=== PATIENT | female | born 1990 ===

== ENCOUNTER 2023-06-10 08:57 | Observation (INO) | payer MEDICAID ==
[2023-06-10] MEDS ORDERED: PREN-96 PO (09:50)
[2023-06-10] MEDS ORDERED: FER325T PO (09:51)
== END 2023-06-10 10:35 | disposition home or self-care (01) ==
LOC: UNDOADMOB 08:57 → LDRP 08:57 → UNDODISOB 10:35
PROVIDERS: ADMIT Obstetrics & Gynecology; ATTEND Obstetrics & Gynecology
DX: O24.419 Gestational diabetes mellitus in pregnancy, unspecified control (principal); Z3A.37 37 weeks gestation of pregnancy
CPT/HCPCS: 59025; 76818; 81002; 82948; 82962; G0378

== ENCOUNTER 2023-06-16 10:03 | Observation (INO) | payer MEDICAID ==
[~2023-06-16 10:03] MED LIST: FER325T PO; PREN-96 PO
== END 2023-06-16 11:30 | disposition home or self-care (01) ==
LOC: UNDOADMOB 10:03 → LDRP 10:03 → UNDODISOB 11:30
PROVIDERS: ADMIT Obstetrics & Gynecology; ATTEND Obstetrics & Gynecology
DX: O24.419 Gestational diabetes mellitus in pregnancy, unspecified control (principal); Z3A.38 38 weeks gestation of pregnancy
CPT/HCPCS: 59025; 76818; 81002; 82948; 82962; 94760; G0378

== ENCOUNTER 2023-06-23 10:32 | Observation (INO) | payer MEDICAID | END 2023-06-23 12:15 | disposition home or self-care (01) | LOC: UNDOADMOB 10:32 → LDRP 10:32 → UNDODISOB 12:15 | PROVIDERS: ADMIT Obstetrics & Gynecology; ATTEND Obstetrics & Gynecology | DX: O24.410 Gestational diabetes mellitus in pregnancy, diet controlled (principal); O62.9 Abnormality of forces of labor, unspecified; O26.893 Other specified pregnancy related conditions, third trimester; R10.9 Unspecified abdominal pain; Z3A.39 39 weeks gestation of pregnancy | CPT/HCPCS: 59025; 76818; 81002; 82962; 94760; G0378 ==

== ENCOUNTER 2023-06-28 16:00 | Inpatient (IN) | payer MEDICAID ==
[~2023-06-28] VITALS: Ht 152.4 cm; Wt 71.2 kg
[~2023-06-28 16:00] MED LIST changes: +fentaNYL CITRATE 100 MCG/2 ML VL IV ONE
[2023-06-28] MEDS ORDERED: PROMETHAZINE HCL 25 MG/ML 1ML IV PRN (16:15)
[2023-06-28] MEDS ORDERED: BUTORPHANOL TARTRATE 2 MG/1 ML VIAL IV PRN ×2 (16:15)
[2023-06-28] MEDS ORDERED: LIDOCAINE 2%HCL (LOCAL ANESTH.) INJ 20ML MDV IJ PRN (16:15)
[2023-06-28] MEDS ORDERED: LACT. RINGERS/OXYTOCIN 20UNITS 500 ML IV ONE ×2 (16:15→16:45)
[2023-06-28 16:56] LABS: Basophils # (auto) 0 10 ^3/uL (0-0.2); Basophils % (auto) 0.1 % (0.0-2.0); Eosinophils # (auto) 0 10 ^3/uL (0-0.8); Eosinophils % (auto) 0.6 % (0.0-7.0); Hematocrit 32.5 % (36.0-46.0); Hemoglobin 10.8 g/dL (12.2-16.2); Lymphocytes # (auto) 1.4 10 ^3/uL (0.4-5.4); Lymphocytes % (auto) 17.9 % (10.0-50.0); Mean Corpuscular Hemoglobin 29.7 pg (28.0-32.0); Mean Corpuscular Hgb Conc. 33.2 g/dL (32.0-36.0); Mean Corpuscular Volume 89.4 fL (80.0-100.0); Monocytes # (auto) 0.4 10 ^3/uL (0-1.3); Monocytes % (auto) 5.8 % (0.0-12.0); Neutrophils # (auto) 5.8 10 ^3/uL (1.6-8.6); Neutrophils % (auto) 75.6 % (37.0-80.0); Nucleated Red Blood Cells % 0.1 %; Red Blood Cells 3.63 10^6/uL (4.0-5.20); Red Cell Distribution Width 13.8 % (11.8-14.3); White Blood Cell 7.7 10^3/uL (4.4-10.8)
[2023-06-28 17:03] LABS: Urine Bacteria FEW /hpf (None Seen); Urine Blood Negative /uL (Negative); Urine Clarity HAZY (Clear); Urine Color Colorless (Yellow); Urine Mucus FEW (None Seen); Urine Protein, UAD Negative (Negative); Urine Specific Gravity 1.016 (1.001-1.035); Urine Urobilinogen Normal (Negative); Urine WBC 1 /hpf (0 - 5)
[2023-06-28 17:13] LABS: Albumin 3.7 g/dL (3.2-4.8); Alkaline Phosphatase 108 U/L (46-116); Anion Gap 7 (5-15); Aspartate Aminotransferase 17 U/L (13-40); BUN/Creatinine Ratio 9.3 (10.0-20.0); Blood Urea Nitrogen 8 mg/dL (9-23); Carbon Dioxide 21 mmol/L (20-30); Chloride 109 mmol/L (98-107); Glucose 73 mg/dL (74-106); Sodium 137 mmol/L (136-145)
[2023-06-28 17:13] LABS: Amphetamine Screen, Urine Neg (NEGATIVE); Barbiturate Scree,Urine Neg (NEGATIVE); Benzodiazephine Screen, Urine Neg (NEGATIVE); Cocaine Screen, Urine Neg (NEGATIVE); Opiate Scree,Urine Neg (NEGATIVE)
[2023-06-28 17:14] LABS: Bilirubin, Total 0.4 mg/dL (0.2-1.0); INR 0.93 (0.9-1.15); Partial Thromboplastin Time 30.4 SEC (24.5-34.5); Prothrombin Time 9.8 sec (9.3-11.8); Total Protein 6.4 g/dL (5.7-8.2)
[2023-06-28 17:14] LABS: Cannabinoid Screen, Urine Neg (NEGATIVE); Phencyclidine Screen, Urine Neg (NEGATIVE)
[2023-06-28 17:17] LABS: Alanine Aminotransferase 9 U/L (7-40)
[2023-06-28] MEDS: LACTATED RINGER'S 1,000 ML IV SCH (17:25)
[2023-06-28] MEDS: DERMOPLAST 60ML BOTTLE TOP PRN (19:19)
[2023-06-28] MEDS: miSOPROStol 50 MCG per PRE-CUT 1/2 TAB PO PRN (19:20)
[2023-06-28] MEDS: PHISODERM TOP SOLN 240ML BTL TOP PRN (19:20)
[2023-06-28] MEDS: WITCH HAZEL-GLYCERIN PAD TOP PRN (19:20)
[2023-06-28] MEDS ORDERED: NALOXONE HCL 1MG/ML 2ML SYRINGE IV ONE (20:45)
[2023-06-28] MEDS ORDERED: fentaNYL CITRATE 100 MCG/2 ML VL IV ONE (20:45)
[2023-06-28] MEDS: D5W/LACTATED RINGERS 1,000 ML IV SCH (21:13)
[2023-06-28] MEDS: CLINDAMYCIN 900MG IV 50 ML IV SCH (22:00)
[2023-06-28] MEDS ORDERED: CLINDAMYCIN 600MG IV 50 ML IV SCH (22:00)
[2023-06-29] MEDS: miSOPROStol 50 MCG per PRE-CUT 1/2 TAB PO PRN (01:16)
[2023-06-29] MEDS: LACTATED RINGER'S 1,000 ML IV SCH ×3 (04:01→16:15)
[2023-06-29] MEDS ORDERED: ROPIVACAINE HCL 200 ML EPI SCH (04:15)
[2023-06-29] MEDS ORDERED: ePHEDrine SULFATE 50 MG/ML AMP IV ONE (04:15)
[2023-06-29] MEDS ORDERED: fentaNYL CITRATE 100 MCG/2 ML VL IV ONE (04:15)
[2023-06-29] MEDS ORDERED: NALOXONE HCL 0.4 MG/ML VIAL IV ONE (04:15)
[2023-06-29] MEDS ORDERED: LACTATED RINGER'S 1,000 ML IV ONE (04:15)
[2023-06-29] MEDS ORDERED: LIDOCAINE HCL 2 %PF INJ 10ML AMP IJ ONE (04:15)
[2023-06-29] MEDS ORDERED: ROPIVACAINE HCL 100 ML ONE (04:31)
[2023-06-29] MEDS: D5W/LACTATED RINGERS 1,000 ML IV SCH (04:45)
[2023-06-29] MEDS: CLINDAMYCIN 900MG IV 50 ML IV SCH (06:00)
[2023-06-29] MEDS ORDERED: METHYLERGONOVINE MALEATE 0.2 MG/ML AMP IM ONE ×2 (06:10→06:45)
[2023-06-29] MEDS: DERMOPLAST 60ML BOTTLE TOP PRN (06:33)
[2023-06-29] MEDS: PHISODERM TOP SOLN 240ML BTL TOP PRN (06:33)
[2023-06-29] MEDS: WITCH HAZEL-GLYCERIN PAD TOP PRN (06:33)
[2023-06-29] MEDS ORDERED: ONDANSETRON ODT 4 MG TAB PO PRN (06:45)
[2023-06-29] MEDS ORDERED: ACETAMINOPHEN 325 MG TAB PO PRN (06:45)
[2023-06-29] MEDS: IBUPROFEN 600 MG TAB PO PRN ×3 (07:37→21:53)
[2023-06-29] MEDS: DOCUSATE CALCIUM 240 MG CAP PO SCH (09:40)
[2023-06-29 11:11] VITALS: BP 99/70; PULSE 73; RESP 17; TEMP 97.7; O2SAT 97
[2023-06-29 15:20] VITALS: BP 96/55; PULSE 69; RESP 16; TEMP 98.7; O2SAT 97
[2023-06-29] MEDS ORDERED: HYDROcodone-ACET 5/325MG TAB PO PRN (17:00)
[2023-06-29] MEDS: HYDROcodone-ACET 5/325MG TAB PO PRN ×2 (17:15→23:48)
[2023-06-29 18:32] LABS: Basophils # (auto) 0 10 ^3/uL (0-0.2); Basophils % (auto) 0.1 % (0.0-2.0); Eosinophils # (auto) 0 10 ^3/uL (0-0.8); Eosinophils % (auto) 0.2 % (0.0-7.0); Hematocrit 31.2 % (36.0-46.0); Hemoglobin 10.1 g/dL (12.2-16.2); Lymphocytes # (auto) 1.5 10 ^3/uL (0.4-5.4); Lymphocytes % (auto) 12.5 % (10.0-50.0); Mean Corpuscular Hemoglobin 29.4 pg (28.0-32.0); Mean Corpuscular Hgb Conc. 32.5 g/dL (32.0-36.0); Mean Corpuscular Volume 90.4 fL (80.0-100.0); Monocytes # (auto) 0.8 10 ^3/uL (0-1.3); Monocytes % (auto) 6.7 % (0.0-12.0); Neutrophils # (auto) 9.7 10 ^3/uL (1.6-8.6); Neutrophils % (auto) 80.5 % (37.0-80.0); Red Blood Cells 3.45 10^6/uL (4.0-5.20); White Blood Cell 12.1 10^3/uL (4.4-10.8)
[2023-06-29 19:10] VITALS: BP 99/57; PULSE 63; RESP 16; TEMP 97.8; O2SAT 99
[2023-06-29] MEDS: CLINDAMYCIN 600MG IV 50 ML IV SCH (21:54)
[2023-06-29] MEDS ORDERED: DOCUSATE SOD 100 MG CAP PO SCH (22:00)
[2023-06-29 23:20] VITALS: BP 112/59; PULSE 68; RESP 17; TEMP 98.9; O2SAT 97
[2023-06-30 02:35] VITALS: BP 110/57; PULSE 63; RESP 16; TEMP 97.9
[2023-06-30] MEDS: IBUPROFEN 600 MG TAB PO PRN (03:55)
[2023-06-30] MEDS: HYDROcodone-ACET 5/325MG TAB PO PRN (05:02)
[2023-06-30 05:22] LABS: Basophils # (auto) 0 10 ^3/uL (0-0.2); Basophils % (auto) 0.1 % (0.0-2.0); Eosinophils # (auto) 0.1 10 ^3/uL (0-0.8); Eosinophils % (auto) 1.2 % (0.0-7.0); Hematocrit 28.5 % (36.0-46.0); Hemoglobin 9.4 g/dL (12.2-16.2); Lymphocytes # (auto) 2.4 10 ^3/uL (0.4-5.4); Lymphocytes % (auto) 24.2 % (10.0-50.0); Mean Corpuscular Hemoglobin 29.8 pg (28.0-32.0); Mean Corpuscular Volume 90.2 fL (80.0-100.0); Monocytes # (auto) 0.5 10 ^3/uL (0-1.3); Monocytes % (auto) 5.3 % (0.0-12.0); Neutrophils # (auto) 6.8 10 ^3/uL (1.6-8.6); Neutrophils % (auto) 69.2 % (37.0-80.0); Red Blood Cells 3.16 10^6/uL (4.0-5.20); White Blood Cell 9.9 10^3/uL (4.4-10.8)
[2023-06-30] MEDS: CLINDAMYCIN 600MG IV 50 ML IV SCH (05:32)
[2023-06-30 05:48] LABS: INR 0.93 (0.9-1.15)
[2023-06-30 07:00] VITALS: BP 105/60; PULSE 59; RESP 17; TEMP 97.4; O2SAT 100
[2023-06-30] MEDS ORDERED: DOCU-265 PO (07:14)
[2023-06-30] MEDS ORDERED: IBU600T PO (07:14)
[2023-06-30] MEDS ORDERED: HYDR-4902 PO (07:14)
[2023-06-30] MEDS: DOCUSATE CALCIUM 240 MG CAP PO SCH (09:59)
[2023-07-01 07:07] LABS: RPR Non Reactive (Non Reactive)
[2023-07-02 19:06] LABS: Treponema pallidum Ab (FTA-Ab) Non Reactive (Non Reactive)
== END 2023-06-30 11:13 | disposition home or self-care (01) | DRG 560 ==
LOC: LDRP 16:00 → UNDOADMIN 16:00 → LDRP 16:08
PROVIDERS: ADMIT Obstetrics & Gynecology; ATTEND Obstetrics & Gynecology
PROC: 10D07Z6 Extraction of Products of Conception, Vacuum, Via Natural or Artificial Opening (ICD-10-PCS; principal; 2023-06-29)
PROC: 0KQM0ZZ Repair Perineum Muscle, Open Approach (ICD-10-PCS; 2023-06-29)
PROC: 3E0R3BZ Introduction of Anesthetic Agent into Spinal Canal, Percutaneous Approach (ICD-10-PCS; 2023-06-29)
PROC: 00HU33Z Insertion of Infusion Device into Spinal Canal, Percutaneous Approach (ICD-10-PCS; 2023-06-29)
DX: O48.0 Post-term pregnancy (principal); Z37.0 Single live birth; O24.429 Gestational diabetes mellitus in childbirth, unspecified control; O70.1 Second degree perineal laceration during delivery; Z3A.40 40 weeks gestation of pregnancy; Z88.0 Allergy status to penicillin
CPT/HCPCS: 36415; 59025; 59409; 62282; 80053; 80307; 81001; 81002; 82948; 82962; 85025; 85610; 85730; 86592; 86850; 86900; 86901; 94760; 94762; 96360; 96361; 96365; 96366; 96372; 96374; 96375; G0378; J2590; J3490

== ENCOUNTER → 2025-03-15 | Outpatient (CLI) | payer MEDICAID ==
[~2025-03-15] MED LIST changes: +DOCU-265 PO; +HYDR-4902 PO; +IBU600T PO; +NAP500T PO; -fentaNYL CITRATE 100 MCG/2 ML VL IV ONE
[2025-03-15 14:29] LABS: Hematocrit 34.1 % (36.0-46.0); Hemoglobin 11.5 g/dL (12.2-16.2); Mean Corpuscular Hemoglobin 29.6 pg (28.0-32.0); Mean Corpuscular Volume 87.8 fL (80.0-100.0); Nucleated Red Blood Cells % 0.0 %
[2025-03-15 14:31] LABS: Urine Protein, UAD Negative (Negative)
== END | disposition home or self-care (01) ==
LOC: LAB 13:49
PROVIDERS: ATTEND Nurse Practitioner Women's Health
DX: Z34.80 Encounter for supervision of other normal pregnancy, unspecified trimester (principal); Z3A.00 Weeks of gestation of pregnancy not specified
CPT/HCPCS: 36415; 81001; 85025; 86780; 86850; 86900; 86901; 87086

== ENCOUNTER 2025-04-25 08:46 | Outpatient (CLI) | payer MEDICAID ==
[2025-04-25 09:14] LABS: Hematocrit 32.7 % (36.0-46.0); Hemoglobin 11.3 g/dL (12.2-16.2); Mean Corpuscular Hemoglobin 30.3 pg (28.0-32.0); Mean Corpuscular Volume 88.2 fL (80.0-100.0); Nucleated Red Blood Cells % 0.0 %
[2025-04-27 00:07] LABS: Chlamydia Trachomatis, NAA Negative (Negative); Neisseria gonorrhoeae, NAA Negative (Negative)
== END 2025-04-25 17:00 | disposition home or self-care (01) ==
LOC: LAB 08:46
DX: Z34.80 Encounter for supervision of other normal pregnancy, unspecified trimester (principal); Z72.53 High risk bisexual behavior; Z3A.00 Weeks of gestation of pregnancy not specified
CPT/HCPCS: 36415; 85025; 86780

== ENCOUNTER 2025-05-21 09:06 | Observation (INO) | payer SELFPAY ==
--- NOTE | 2025-05-21 11:08 | DVH ---
CLINICAL HISTORY: Term . COMPARISON: US BIOPHYSICAL PROFILE on DOS: 06/23/23, US BIOPHYSICAL PROFILE on DOS: 06/16/23, US BIOPH YSICAL PROFILE on DOS: 06/10/23 TECHNIQUE: biophysical profile was performed. Transabdominal sonographic images of the fetus we re obtained. FINDINGS: The fetus is in cephalic position. heart rate measures 144 BPM. Amniotic fluid index measures 7.5 cm. The placenta is posterior/fundal in position without evidence of previa or abruption . BPP profile is an overall score of 8/8, with 2/2 points for breathing, with at least one episode of breathing over a 30 second duration during a 30 minute observation, 2/2 points for m ovements, with 3 or more discrete body or limb movements, 2/2 points for tone, with one or more episodes of extremity extension with return to flexion, or opening and closing of hand, and 2/ 2 points for amniotic fluid, with at least 1 pocket of amniotic fluid that measures 2 cm in 2 perpend icular planes. IMPRESSION: BPP score of 8/8.
--- NOTE | 2025-05-22 09:51 | DVHDS2 ---
Physician Discharge Progress N Final Diagnosis: 40WKS TERM LABOR CHECK Operations or Procedures: Operations or Procedures NST REACTIVE YO TALAMANTES Condition on Discharge: Good Disposition: Home Discharge Instructions: Diet: Regular Activity: Light activity Medications: NA Follow Up Care: Specialist: 2D Discharge Statement: "Patient was advised to return to the ER or call 911 if any headaches, dizziness, shortness of breath, chest pain, abdominal pain, bleeding, fevers, or worsening of medical condition. Patient was counseled about treatment plan, medications, possible side effects, patientverbalized understanding. All questions were answered to the best of my ability. This discharge took greater then 30 minutes in planning, reviewing documentat ion, counseling the patient, and discussing with other team members." Visit Coding OBGYN Date of Service: May 20, 2025 Billing Provider: ROLAND SOUZA DO WAREHOUSE AND RECEIVING SUPERVISOR Common Visit Codes: [id number] OBS CARE (HIGH) WAREHOUSE AND RECEIVING SUPERVISOR Procedure Codes: 83323-60- NON-STRESS TEST ROLAND SOUZA DO May 22, 2025 09:51
== END 2025-05-21 11:49 | disposition home or self-care (01) ==
LOC: LDRP 09:06
PROVIDERS: ADMIT Obstetrics & Gynecology; ATTEND Obstetrics & Gynecology
DX: O48.0 Post-term pregnancy (principal); Z3A.40 40 weeks gestation of pregnancy; Z98.890 Other specified postprocedural states
CPT/HCPCS: 76818; 81002; 94760; G0378; 76819

== ENCOUNTER 2025-05-23 06:59 | Observation (INO) | payer MEDICAID ==
--- NOTE | 2025-05-23 09:56 | DVH ---
BIOPHYSICAL PROFILE HISTORY: TERM TECHNIQUE: Multiple transabdominal real-time grayscale sonographic images through the gravid uterus of the fetus with duplex Doppler color flow and M-mode spectral analysis FINDINGS: BIOPHYSICAL PROFILE: breathing score: 2 movement score: 2 tone score: 2 Quantitative INO score: 2 (INO: 8.9 Cm.) Total score: 8 The cervix not well visualized. Single live fetus in cephalic presentation. heart rate 157 beats per minute. Fundal/posterior placenta without previa or abruption IMPRESSION: Biophysical profile score: 8
--- NOTE | 2025-05-24 08:00 | DVHDS2 ---
Physician Discharge Progress N Final Diagnosis: iup at 40wks Operations or Procedures: Operations or Procedures nst reactive reviwed,sono Condition on Discharge: Good Disposition: Home Discharge Instructions: Diet: Regular Activity: Light activity Medications: na Follow Up Care: Specialist: fu 1 day for induction ,pt refused ind today Discharge Statement: "Patient was advised to return to the ER or call 911 if any headaches, dizziness, shortness of breath, chest pain, abdominal pain, bleeding, fevers, or worsening of medical condition. Patient was counseled about treatment plan, medications, possible side effects, patientverbalized understanding. All questions were answered to the best of my ability. This discharge took greater then 30 minutes in planning, reviewing documentation, counseling the patient, and discussing with other team members." Visit Coding OBGYN Date of Service: May 23, 2025 Billing Provider: ROLAND SOUZA DO LUMBER MOVER Common Visit Codes: [id number] INP/OBS CARE (HIGH) LUMBER MOVER Procedure Codes: 72307-62- NON-STRESS TEST ROLAND SOUZA DO May 24, 2025 08:00
== END 2025-05-23 11:00 | disposition home or self-care (01) ==
LOC: LDRP 09:11 → UNDOADMOB 09:11 → LDRP 09:13 → UNDODISOB 11:00
PROVIDERS: ADMIT Obstetrics & Gynecology; ATTEND Obstetrics & Gynecology
DX: Z36.89 Encounter for other specified antenatal screening (principal); Z3A.40 40 weeks gestation of pregnancy; Z98.890 Other specified postprocedural states
CPT/HCPCS: 59025; 76819; 81002; 94760; G0378

== ENCOUNTER 2025-05-24 06:13 | Inpatient (IN) | payer MEDICAID ==
[~2025-05-24] VITALS: Ht 152.4 cm; Wt 69.4 kg
[2025-05-24] MEDS ORDERED: LIDOCAINE 2%HCL (LOCAL ANESTH.) INJ 20ML MDV IJ PRN (09:30)
[2025-05-24] MEDS ORDERED: BUTORPHANOL TARTRATE 2 MG/1 ML VIAL IV PRN ×2 (09:30)
[2025-05-24 09:56] LABS: Hematocrit 34.2 % (36.0-46.0); Hemoglobin 11.4 g/dL (12.2-16.2); Mean Corpuscular Hemoglobin 29.9 pg (28.0-32.0); Mean Corpuscular Volume 89.2 fL (80.0-100.0); Nucleated Red Blood Cells % 0.0 %
[2025-05-24 10:08] LABS: Albumin 3.8 g/dL (3.2-4.8); Alkaline Phosphatase 101 U/L (46-116); Anion Gap 10 (5-15); BUN/Creatinine Ratio 11.1 (10.0-20.0); Bilirubin, Total 0.3 mg/dL (0.2-1.0); Calcium 9.2 mg/dL (8.7-10.4); Carbon Dioxide 23 mmol/L (20-31); Chloride 107 mmol/L (98-107); Potassium 3.7 mmol/L (3.5-5.1); Sodium 140 mmol/L (136-145); Total Protein 6.7 g/dL (5.7-8.2)
[2025-05-24 10:11] LABS: Alanine Aminotransferase < 9 U/L (7-40); Blood Urea Nitrogen 7 mg/dL (9-23); Glucose 108 mg/dL (74-106)
[2025-05-24 10:16] LABS: Urine Protein, UAD Negative (Negative)
[2025-05-24 10:21] LABS: INR 0.92 (0.9-1.15); Partial Thromboplastin Time 29.3 SEC (24.5-34.5); Prothrombin Time 9.8 sec (9.3-11.8)
[2025-05-24 10:26] LABS: Amphetamine Screen, Urine Neg (NEGATIVE); Barbiturate Scree,Urine Neg (NEGATIVE); Benzodiazephine Screen, Urine Neg (NEGATIVE); Cannabinoid Screen, Urine Neg (NEGATIVE); Cocaine Screen, Urine Neg (NEGATIVE); Opiate Scree,Urine Neg (NEGATIVE); Phencyclidine Screen, Urine Neg (NEGATIVE)
[2025-05-24] MEDS: LACTATED RINGER'S 1,000 ML IV SCH (14:27)
--- NOTE | 2025-05-24 14:27 | DVHHP2 ---
OB CC & HPI Date Date of Admission: May 24, 2025 Patient Identification: : 4 Para: 3 EDC: May 21, 2025 EGA: 40.3 Chief Complaints: Reason for admission: induction of labor Indication for induction: post dates History of Present Complaints 35yo IUP@40.3wks. Scheduled induction of labor for post dates. Denies LOF/VB/KUNZ/vision changes/RUQ pain. Endorses +FM. PNC: Routine PNC at [facility], adequate visits, PNC complicated by iron deficiency anemia. GTT wnl Dating based on LMP c/w 11wk sono, GBS negative. OB hx: x3, uncomplicated. Largest delivery weight, 8lb, 9oz Past Medical History Cardiac: No pertinent Hx Pulmonary: No pertinent Hx Central Nervous System: No pertinent Hx GI: No pertinent Hx Hemotology/Oncology: Iron deficiency anemia Hepatobiliary: No pertinent Hx Psychiatric: No pertinent Hx Musculoskeletal: No pertinent Hx Rheumotologic: No pertinent Hx Infectious Disease: No peritnent Hx ENT: No pertinent Hx Renal/: No pertinent Hx Endocrine: No pertinent Hx Dermatology: No pertinent Hx Past Surgical History: No pertinent Hx OB History OB History Care: Good Care Ultrasounds: Normal mid trimester US Obstetrical Complications: None Medical Complications: None Allergies: Coded Allergies: Penicillins (Verified Allergy, Unknown, 06/28/23) Home Meds Active Scripts Naproxen (NAPROSYN TABLET) 500 Mg Tb, 1 TAB PO BID for 7 Days, #14 TAB 1 Refill Prov:LASHONDA CALDWELL DO 07/07/23 Ibuprofen Micronized (MOTRIN TABLET) 600 Mg Tb, 600 MG PO Q6HP PRN, #30 TAB Prov:LASHONDA CALDWELL DO 06/30/23 Hydrocodone-Acetaminophen (Hydrocodone Bitartrate/AC 5-325 mg) 1 Tab Tab, 1 TAB PO Q6HPRN PRN for 5 Days, #20 TAB Prov:LASHONDA CALDWELL DO 06/30/23 Docusate Sodium (Docusate Sodium) 100 Mg Cap, 200 MG PO HS PRN, #5 CAP Prov:LASHONDA CALDWELL DO 06/30/23 Reported Medications Ferrous Sulfate (FERROUS SULFATE) 325 Mg Tb, 1 TAB PO TID, #60 TAB 3 Refills 06/10/23 Vit W/ Ferrous Fumara ( One Daily) Daily Tab, 1 TAB PO DAILY, #30 TAB 11 Refills 06/10/23 Current Medications Current Medications Medications (Trade) Dose Ordered Sig/[place] Route PRN Reason Start Time Stop Time Status Last Admin Lactated Ringer's 1,000 ml @ 125 mls/hr Q8H IV 05/24/25 09:30 Witch Ashlee (Tucks) 1 pad PRN PRN TOP PERINEAL AREA DISCOMFORT 05/24/25 09:30 Sodium Lauryl Sulfate (Phisoderm) 240 ml PRN PRN TOP PERINEAL AREA DISCOMFORT 05/24/25 09:30 Benzocaine (Dermoplast) 1 applic PRN PRN TOP PERINEAL AREA DISCOMFORT 05/24/25 09:30 Butorphanol Tartrate (Stadol Injection) 1 mg Q4HPRN PRN IV MODERATE PAIN (4-6 PAIN SCALE) 05/24/25 09:30 Butorphanol Tartrate (Stadol Injection) 2 mg Q4HPRN PRN IV SEVERE PAIN (7-10 PAIN SCALE) 05/24/25 09:30 Misoprostol (Cytotec) 50 mcg Q4HPRN PRN PO CERVICAL RIPENING 05/24/25 09:30 05/24/25 10:09 Lidocaine HCl (Xylocaine) 20 ml ONCE PRN IJ PERINEAL AREA DISCOMFORT 05/24/25 09:30 Family & Social History Family/Social History Past Family/Social History: Denies Blood Type: O+ Rubella: immune RPR/VDRL: Negative GBS Status: Negative HBsAG: Negative Review of Systems Constitutional: No symptom reported Ears, Nose, & Throat: No symptom reported Eyes: No symptom reported Pulmonary/Respiratory: No symptom reported Cardiovascular: No symptom reported Gastrointestinal: No symptom reported Genitourinary: No symptom reported Musculoskeletal: No symptom reported Skin: No symptom reported Psychiatric: No symptom reported Endocrine: No symptom reported Hemotologic/Lymphatic: No symptom reported OB Admission Exam Physical Exam Vitals: O: VSS - See CPN EFW - 7lb 13 oz 1 week ago. SVE - 09/16/-3, by SNM in clinic this AM, vertex HEENT: TMs Normal, Fontanelles Normal, Nasal Mucosa Normal, Eyes non-injected, Oropharynx Normal, PERRLA, Moist Membranes, EOMI Heart: Rhythm Normal Lungs: Clear Abdomen: Gravid Extremities: Normal Reflexes: Normal Membranes: Intact Heart Rate: 120's Accelerations: Accelerations Present Decelerations: No Decelerations Trailer Sections Assembler Variability: Average (6-25) Frequency of Contractions: irregular Intensity: Mild OB Plan Plan Admitting Diagnosis: INDUCTION OF LABOR Plan: Induction Induction Methd: Misoprostol protocol Other Plan: A: 35yo IUP@40.3wks IOL for post-dates/term Category I EFM Intact membranes GBS negative P: Admit to L&D Informed consent obtained Discussed risks, benefits, alternatives of IOL for post-dates with pt. Pt consents to IOL with cytotec. monitoring per order Pain mgmt - PRN Frequent position changes in and out of bed encouraged Limit SVE unless necessary Intrauterine resuscitation PRN Anticipate CNM will consult with Dr. Campoverde PRN Visit Coding OBGYN Date of Service: May 24, 2025 Billing Provider: LILI SMILEY CNM PHARMACIST MANAGER Common Visit Codes: [id number] INP/OBS CARE (MOD) PHARMACIST MANAGER Procedure Codes: 76795-73- NON-STRESS TEST LILI SMILEY CNM May 24, 2025 14:27
--- NOTE | 2025-05-24 19:04 | DVHPN2 ---
CNM Labor Progress Note Date and Time Seen Date Seen: May 24, 2025 Time Seen: 18:47 Subjective Patient reports: No new complaints Objective Vital Signs VSS - CPN Monitoring Method Monitoring Method: External Heart Rate Heart Rate Baseline: 150 Heart Rate Variability: Moderate Presence of FHR Accelerations: Yes Presence of FHR Decelerations: No Contractions Contractions Frequency: Other (2/10) Duration of Contraction: 100 Contractions Intensity: Moderate Contractions Resting Tone: Relaxed Membranes Membranes: Intact Vaginal Exam Vag Exam Deferred: No (4.5/50/-2) Vaginal Exam Presentation: VTX Vaginal Exam Show: Small Medications Medications - Pitocin: No Medication - Epidural: No Medication - Other S/P cytotec x2 Lab Results Lab Results Current Medications Medications (Trade) Dose Ordered Sig/[place] Start Time Stop Time Status Last Admin Dose Admin Lactated Ringer's 1,000 ml @ 125 mls/hr Q8H 05/24/25 09:30 05/24/25 17:30 125 MLS/HR Witch Ashlee (Tucks) 1 pad PRN PRN 05/24/25 09:30 Sodium Lauryl Sulfate (Phisoderm) 240 ml PRN PRN 05/24/25 09:30 Benzocaine (Dermoplast) 1 applic PRN PRN 05/24/25 09:30 Butorphanol Tartrate (Stadol Injection) 1 mg Q4HPRN PRN 05/24/25 09:30 Butorphanol Tartrate (Stadol Injection) 2 mg Q4HPRN PRN 05/24/25 09:30 Misoprostol (Cytotec) 50 mcg Q4HPRN PRN 05/24/25 09:30 05/24/25 14:21 50 MCG Lidocaine HCl (Xylocaine) 20 ml ONCE PRN 05/24/25 09:30 Ephedrine Sulfate (ePHEDrine SULFATE) 10 mg PRN ONCE 05/24/25 19:15 05/24/25 19:51 DC Lactated Ringer's 500 ml @ 500 mls/hr Q1H ONCE 05/24/25 19:15 05/24/25 20:14 DC Laboratory Tests Test 05/24/25 09:53 05/24/25 09:34 Range/Units Urine Color Light-yellow Yellow Urine Clarity Clear Clear Urine pH 7.0 5.0-9.0 Urine Specific [place] 1.011 1.001-1.035 Urine Protein Negative Negative Urine Ketones Negative Negative Urine Blood Negative Negative /uL Urine Nitrite Negative Negative Urine Bilirubin Negative Negative Urine Urobilinogen Normal Negative mg/dL Urine Leukocyte Esterase Negative Negative /uL Urine RBC 1 0 - 4 /hpf Urine Microscopic WBC 2 0-5 /HPF Urine Squamous Epithelial Cells Few <5 /hpf Urine Bacteria None seen None Seen /hpf Urine Glucose Normal Normal mg/dL Urine Opiates Screen Neg NEGATIVE Urine Fentanyl Screen Neg NEGATIVE Urine Barbiturates Screen Neg NEGATIVE Urine Phencyclidine Screen Neg NEGATIVE Urine Amphetamines Screen Neg NEGATIVE Urine Benzodiazepines Screen Neg NEGATIVE Urine Cocaine Screen Neg NEGATIVE Urine Cannabinoids Screen Neg NEGATIVE White Blood Count 8.4 4.4-10.8 10^3/uL Red Blood Count 3.83 L 4.0-5.20 10^6/uL Hemoglobin 11.4 L 12.2-16.2 g/dL Hematocrit 34.2 L 36.0-46.0 % Mean Corpuscular Volume 89.2 80.0-100.0 fL Mean Corpuscular Hemoglobin 29.9 28.0-32.0 pg Mean Corpuscular Hemoglobin Concent 33.5 32.0-36.0 g/dL Red Cell Distribution Width 14.8 H 11.8-14.3 % Platelet Count 179 140-450 10^3/uL Mean Platelet Volume 9.3 6.9-10.8 fL Neutrophils (%) (Auto) 81.5 H 37.0-80.0 % Lymphocytes (%) (Auto) 14.6 10.0-50.0 % Monocytes (%) (Auto) 3.0 0.0-12.0 % Eosinophils (%) (Auto) 0.6 0.0-7.0 % Basophils (%) (Auto) 0.3 0.0-2.0 % Neutrophils # (Auto) 6.8 1.6-8.6 10 ^3/uL Lymphocytes # (Auto) 1.2 0.4-5.4 10 ^3/uL Monocytes # (Auto) 0.3 0-1.3 10 ^3/uL Eosinophils # (Auto) 0 0-0.8 10 ^3/uL Basophils # (Auto) 0 0-0.2 10 ^3/uL Nucleated Red Blood Cells 0.0 % Prothrombin Time 9.8 9.3-11.8 sec Prothrombin Time INR 0.92 0.9-1.15 Activated Partial Thromboplast Time 29.3 24.5-34.5 SEC Sodium Level 140 136-145 mmol/L Potassium Level 3.7 3.5-5.1 mmol/L Chloride Level 107 98-107 mmol/L Carbon Dioxide Level 23 20-31 mmol/L Anion Gap 10 5-15 Blood Urea Nitrogen 7 L 9-23 mg/dL Creatinine 0.63 0.550-1.02 mg/dL Glomerular Filtration Rate Calc 120 >90 mL/min BUN/Creatinine Ratio 11.1 10.0-20.0 Serum Glucose 108 H 74-106 mg/dL Calcium Level 9.2 8.7-10.4 mg/dL Total Bilirubin 0.3 0.2-1.0 mg/dL Aspartate Amino Transferase (AST) 24 13-40 U/L Alanine Aminotransferase (ALT) < 9 7-40 U/L Alkaline Phosphatase 101 46-116 U/L Total Protein 6.7 5.7-8.2 g/dL Albumin 3.8 3.2-4.8 g/dL Treponema pallidum Antibody Non-reactive Negative Assessment Assessment 35yo IUP@40.3wks IOL for post-dates Category I EFM GBS negative Intact membrane Plan Plan P: Discussed starting Pitocin with patient. Patient agrees with POC after epidural placement. Start Pitocin titration per protocol. monitoring per order Pain mgmt - PRN Frequent position changes in and out of bed encouraged Limit SVE unless necessary Intrauterine resuscitation PRN Anticipate CNM will consult with Dr. Campoverde PRN Plan discussed with: Patient Visit Coding OBGYN Date of Service: May 24, 2025 Billing Provider: LILI SMILEY CNM SHANK SANDER Common Visit Codes: [id number] INP/OBS CARE(MOD) MORAIMA BUTLER STUDENTMDW May 24, 2025 19:04
[2025-05-24] MEDS: LACTATED RINGER'S 500 ML IV ONE (19:06)
[2025-05-24] MEDS: ROPIVACAINE HCL 0 ML ONE (19:22)
[2025-05-24] MEDS: LACT. RINGERS/OXYTOCIN 20UNITS 1,000 ML IV ONE (20:53)
[2025-05-24] MEDS: LACT. RINGERS/OXYTOCIN 20UNITS 1,000 ML IV SCH (21:00)
[2025-05-24] MEDS ORDERED: TERBUTALINE SULFATE 1 MG/ML 1ML VIAL SC PRN (21:15)
[2025-05-24] MEDS: PHISODERM TOP SOLN 240ML BTL TOP PRN (22:29)
[2025-05-24] MEDS: DERMOPLAST 60ML BOTTLE TOP PRN (22:29)
[2025-05-24] MEDS: WITCH HAZEL-GLYCERIN PAD TOP PRN (22:29)
--- NOTE | 2025-05-24 23:38 | DVHPN2 ---
CNM Labor Progress Note Date and Time Seen Date Seen: May 24, 2025 Time Seen: 22:55 Subjective Subjective Comment Patient feels comfortable with epidural in place. Reports working well. After discussion with patient, patient desires AROM. Objective Vital Signs VSS- See CPN Monitoring Method Monitoring Method: External Heart Rate Heart Rate Baseline: 125 Heart Rate Variability: Moderate Presence of FHR Accelerations: Yes Presence of FHR Decelerations: No Are all 5 Components of the FH: Yes Contractions Contractions Frequency: Other (Q2-4min) Duration of Contraction: 80 Contractions Intensity: Moderate Contractions Resting Tone: Relaxed Membranes Membranes: Ruptured (AROM) Amniotic Fluid Color: Clear Vaginal Exam Vag Exam Deferred: No Vaginal Exam Dilation: 7 Vaginal Exam Effacement: 80 Vaginal Exam Station: -2 Vaginal Exam Presentation: VTX Vaginal Exam Show: Small Medications Medications - Pitocin: Yes (4mu/min) Medication - Epidural: Yes Lab Results Lab Results Current Medications Medications (Trade) Dose Ordered Sig/[place] Start Time Stop Time Status Last Admin Dose Admin Lactated Ringer's 1,000 ml @ 125 mls/hr Q8H 05/24/25 09:30 05/25/25 00:51 DC 05/24/25 17:30 125 MLS/HR Pia Rosado (Tucks) 1 pad PRN PRN 05/24/25 09:30 05/24/25 22:29 1 PAD Sodium Lauryl Sulfate (Phisoderm) 240 ml PRN PRN 05/24/25 09:30 05/24/25 22:29 240 ML Benzocaine (Dermoplast) 1 applic PRN PRN 05/24/25 09:30 05/24/25 22:29 1 APPLIC Butorphanol Tartrate (Stadol Injection) 1 mg Q4HPRN PRN 05/24/25 09:30 05/24/25 21:55 DC Butorphanol Tartrate (Stadol Injection) 2 mg Q4HPRN PRN 05/24/25 09:30 05/24/25 21:55 DC Misoprostol (Cytotec) 50 mcg Q4HPRN PRN 05/24/25 09:30 05/25/25 00:51 DC 05/24/25 14:21 50 MCG Lidocaine HCl (Xylocaine) 20 ml ONCE PRN 05/24/25 09:30 05/25/25 00:51 DC Ephedrine Sulfate (ePHEDrine SULFATE) 10 mg PRN ONCE 05/24/25 19:15 05/24/25 19:51 DC Lactated Ringer's 500 ml @ 500 mls/hr Q1H ONCE 05/24/25 19:15 05/24/25 20:14 DC 05/24/25 19:06 500 MLS/HR Oxytocin 1,000 ml @ 6 ml/hr Q24H 05/24/25 21:15 05/25/25 00:51 DC Terbutaline Sulfate (Brethine Inj) 0.25 mg ONCE PRN 05/24/25 21:15 05/25/25 00:51 DC Ibuprofen (Motrin Tablet) 600 mg Q6HP PRN 05/25/25 01:00 Acetaminophen (Tylenol Tablet) 650 mg Q6HPRN PRN 05/25/25 01:00 UNV Prenat Multivit/ [place]/Iron/Folic Ac (Prenavite Tablet) 1 DAILY 05/25/25 10:00 UNV Docusate Sodium (Colace Capsule) 200 mg DAILY PRN 05/25/25 07:00 UNV Acetaminophen (Tylenol Tablet) 650 mg Q4HP PRN 05/25/25 01:00 UNV Ondansetron HCl (Zofran) 4 mg Q4HP PRN 05/25/25 01:00 UNV Ibuprofen (Motrin Tablet) 800 mg Q6HR 05/25/25 06:00 UNV Laboratory Tests Test 05/24/25 09:53 05/24/25 09:34 Range/Units Urine Color Light-yellow Yellow Urine Clarity Clear Clear Urine pH 7.0 5.0-9.0 Urine Specific [place] 1.011 1.001-1.035 Urine Protein Negative Negative Urine Ketones Negative Negative Urine Blood Negative Negative /uL Urine Nitrite Negative Negative Urine Bilirubin Negative Negative Urine Urobilinogen Normal Negative mg/dL Urine Leukocyte Esterase Negative Negative /uL Urine RBC 1 0 - 4 /hpf Urine Microscopic WBC 2 0-5 /HPF Urine Squamous Epithelial Cells Few <5 /hpf Urine Bacteria None seen None Seen /hpf Urine Glucose Normal Normal mg/dL Urine Opiates Screen Neg NEGATIVE Urine Fentanyl Screen Neg NEGATIVE Urine Barbiturates Screen Neg NEGATIVE Urine Phencyclidine Screen Neg NEGATIVE Urine Amphetamines Screen Neg NEGATIVE Urine Benzodiazepines Screen Neg NEGATIVE Urine Cocaine Screen Neg NEGATIVE Urine Cannabinoids Screen Neg NEGATIVE White Blood Count 8.4 4.4-10.8 10^3/uL Red Blood Count 3.83 L 4.0-5.20 10^6/uL Hemoglobin 11.4 L 12.2-16.2 g/dL Hematocrit 34.2 L 36.0-46.0 % Mean Corpuscular Volume 89.2 80.0-100.0 fL Mean Corpuscular Hemoglobin 29.9 28.0-32.0 pg Mean Corpuscular Hemoglobin Concent 33.5 32.0-36.0 g/dL Red Cell Distribution Width 14.8 H 11.8-14.3 % Platelet Count 179 140-450 10^3/uL Mean Platelet Volume 9.3 6.9-10.8 fL Neutrophils (%) (Auto) 81.5 H 37.0-80.0 % Lymphocytes (%) (Auto) 14.6 10.0-50.0 % Monocytes (%) (Auto) 3.0 0.0-12.0 % Eosinophils (%) (Auto) 0.6 0.0-7.0 % Basophils (%) (Auto) 0.3 0.0-2.0 % Neutrophils # (Auto) 6.8 1.6-8.6 10 ^3/uL Lymphocytes # (Auto) 1.2 0.4-5.4 10 ^3/uL Monocytes # (Auto) 0.3 0-1.3 10 ^3/uL Eosinophils # (Auto) 0 0-0.8 10 ^3/uL Basophils # (Auto) 0 0-0.2 10 ^3/uL Nucleated Red Blood Cells 0.0 % Prothrombin Time 9.8 9.3-11.8 sec Prothrombin Time INR 0.92 0.9-1.15 Activated Partial Thromboplast Time 29.3 24.5-34.5 SEC Sodium Level 140 136-145 mmol/L Potassium Level 3.7 3.5-5.1 mmol/L Chloride Level 107 98-107 mmol/L Carbon Dioxide Level 23 20-31 mmol/L Anion Gap 10 5-15 Blood Urea Nitrogen 7 L 9-23 mg/dL Creatinine 0.63 0.550-1.02 mg/dL Glomerular Filtration Rate Calc 120 >90 mL/min BUN/Creatinine Ratio 11.1 10.0-20.0 Serum Glucose 108 H 74-106 mg/dL Calcium Level 9.2 8.7-10.4 mg/dL Total Bilirubin 0.3 0.2-1.0 mg/dL Aspartate Amino Transferase (AST) 24 13-40 U/L Alanine Aminotransferase (ALT) < 9 7-40 U/L Alkaline Phosphatase 101 46-116 U/L Total Protein 6.7 5.7-8.2 g/dL Albumin 3.8 3.2-4.8 g/dL Treponema pallidum Antibody Non-reactive Negative Assessment Assessment 35yo IUP@40.3wks IOL for post-dates Category I EFM GBS negative AROM, Clear Plan Plan P: Continue Pitocin titration monitoring per order Pain mgmt - Epidural Frequent position changes in bed encouraged Limit SVE unless necessary Intrauterine resuscitation PRN Anticipate CNM will consult with Dr. Campoverde PRN Plan discussed with: Patient Visit Coding OBGYN Date of Service: May 24, 2025 Billing Provider: LILI SMILEY CNM SALES COMMISSIONS ANALYST Common Visit Codes: [id number] INP/OBS CARE(MOD) MORAIMA BUTLER STUDENTMDW May 24, 2025 23:38
--- NOTE | 2025-05-25 00:58 | LDN2 ---
Labor and Delivery Note Date 05/25/25 Age 35 4 Para 4 now AB 0 EDC 05/21/25 EGA 40.4 Diagnosis IOL for Post-dates, then Vaginal Delivery: VTX Vacuum Assisted: No Placenta: Spontaneous Sex: Female Weight pending Apgars 8/9 Nuchal Cord Transected: No Amniotic Fluid: Clear Anesthesia Epidural Episiotomy: No Extension: Yes (1st degree perineal) Repaired with 3-0 Vicryl EBL 200ml Labs Blood Bank 05/24/25 09:34: Blood Type O POSITIVE Complications none Conditions Stable Inside Sales Agent Somu Comments/Significant Med Renny RN requests provider in room due to inability to obtain FHT on external monitor. Upon arrival, attempted to obtain FHT without success. Bed sheet lifted and head noted to be delivered spontaneously. Viable female then immediately delivered at 0000 by this 35yo now via w/ APGARS 8/9. CANDICE, loose Nuchal x1 with cord reduced after . Cord clamped and cut after pulsation ceased. Intact 3-vessel cord placenta delivered spontaneously, Veronica. Cord blood sent. Patient had epidural. Cervix/vagina/labia inspected (intact) and first degree perineal laceration present which was repaired with 3- 0 vicryl suture. VSS. Fundus firm at U, midline, light lochia. QBL 200ml. Patient to care and baby to couplet care. Both stable. Visit Coding OBGYN Date of Service: May 25, 2025 Billing Provider: LILI SMILEY CNM BUSINESS OFFICE TECHNICIAN Common Visit Codes: PROCEDURE ONLY BUSINESS OFFICE TECHNICIAN Procedure Codes: [id number] DEL INCLUDING MORAIMA BUTLER STUDENTMDW May 25, 2025 00:58
[2025-05-25] MEDS ORDERED: ONDANSETRON HCL 4 MG/2 ML VIAL IV PRN (01:00)
[2025-05-25] MEDS ORDERED: ACETAMINOPHEN 325 MG TAB PO PRN (01:00)
[2025-05-25] MEDS: ROPIVACAINE HCL 100 ML ONE (02:50)
[2025-05-25 03:00] VITALS: BP 98/58; PULSE 82; RESP 16; TEMP 98.1; O2SAT 100
[2025-05-25] MEDS: LACT. RINGERS/OXYTOCIN 20UNITS 500 ML IV ONE ×2 (04:51→04:53)
[2025-05-25] MEDS: IBUPROFEN 600 MG TAB PO PRN (05:25)
[2025-05-25] MEDS ORDERED: IBUPROFEN 800 MG TAB PO SCH (06:00)
[2025-05-25 06:40] VITALS: BP 104/56; PULSE 74; RESP 16; TEMP 98; O2SAT 98
[2025-05-25] MEDS ORDERED: DOCUSATE SOD 100 MG CAP PO PRN (07:00)
[2025-05-25] MEDS: ACETAMINOPHEN 325 MG TAB PO PRN (09:11)
[2025-05-25] MEDS: PRENATAL VITAMIN TAB PO SCH (09:11)
[2025-05-25 11:30] VITALS: BP 105/54; PULSE 83; RESP 16; TEMP 98; O2SAT 98
[2025-05-25] MEDS: IBUPROFEN 800 MG TAB PO PRN (11:54)
[2025-05-25 14:37] VITALS: BP 102/57; PULSE 84; RESP 18; TEMP 98.2; O2SAT 97
[2025-05-25 19:00] VITALS: BP 107/57; PULSE 72; RESP 16; TEMP 98.4; O2SAT 98
[2025-05-25 23:28] VITALS: BP 103/51; PULSE 88; RESP 18; TEMP 98.3; O2SAT 98
--- NOTE | 2025-05-26 06:16 | DVHPN2 ---
Progress Note Date Seen: May 26, 2025 Subjective S: Lochia minimal Tolerating regular diet well. Ambulating and voiding well w/o feeling lightheaded or dizzy. Passing flatus but no BM yet. Breast feeding. Contraceptive plan: Undecided Desires and requests to be discharged home today vital signs Vital Sign Date Time Temp Pulse Resp B/P (MAP) Pulse Ox O2 Delivery O2 Flow Rate FiO2 05/25/25 23:28 98.3 88 18 103/51 (68) 98 98.3 05/25/25 19:00 Room Air Total Intake and Output 05/25/25 05/25/25 05/26/25 15:00 23:00 07:00 Output Total 1050 ml Balance -1050 ml medications Current Medications Medications Dose Ordered Sig/[place] Route Start Time Stop Time Status Last Admin Dose Admin Pia Rosado 1 pad PRN PRN TOP 05/24/25 09:30 05/24/25 22:29 1 PAD Sodium Lauryl Sulfate 240 ml PRN PRN TOP 05/24/25 09:30 05/24/25 22:29 240 ML Benzocaine 1 applic PRN PRN TOP 05/24/25 09:30 05/24/25 22:29 1 APPLIC Acetaminophen 650 mg Q6HPRN PRN PO 05/25/25 01:00 Cancel Prenat Multivit/ [place]/Iron/Folic Ac 1 DAILY PO 05/25/25 10:00 05/25/25 09:11 1 Docusate Sodium 200 mg DAILY PRN PO 05/25/25 07:00 Acetaminophen 650 mg Q4HP PRN PO 05/25/25 01:00 05/25/25 09:11 650 MG Ondansetron HCl 4 mg Q4HP PRN IV 05/25/25 01:00 Ibuprofen 800 mg Q6HR PRN PO 05/25/25 06:30 05/25/25 17:37 800 MG laboratory and microbiology Laboratory Tests 05/24/25 09:34 Test 05/24/25 09:34 Range/Units Serum Glucose 108 H 74-106 mg/dL Objective O: A&O x3 NAD. Afebrile, VSS Chest: heart and lung sounds normal. Breasts: Nipples intact w/o cracks or soreness Abdomen: normal BS, soft, non-tender, no rebound or guarding, fundus firm @ U- 1, lochia minimal Perineum:- no edema, or erythema, laceration site with sutures intact, edges in good approximation. Extremities: no edema or tenderness Lochia - minimal Assessment/Plan A/P 35yo now ppd#1 s/p doing well. Blood Type: O Rh: Positive Breast feeding Rubella Immune Pain control with oral medications Bowel regimen: Increase fluid intake and fiber in diet, Laxative PRN PP BCM Plan: Undecided; aware of contraceptive options Discharge plan: May discharge home later today if condition remains stable Plan discussed with: Patient Visit Coding OBGYN Date of Service: May 26, 2025 Billing Provider: PAZ BLANK CNM COMBINED RAIL OPERATOR Common Visit Codes: [id number] INP/OBS CARE (HIGH) PAZ BLANK CNM May 26, 2025 06:16
--- NOTE | 2025-05-26 06:30 | DVHDS2 ---
Discharge Summary Date of Admission May 24, 2025 at 09:11 Date of Discharge: May 26, 2025 Admitting Diagnosis IUP at 40w 3d IOL for postdate GBS Neg Wounds: perineal laceration Labs/Diagnostic Data: Laboratory Results Test 05/24/25 09:53 05/24/25 09:34 Urine Color Light-yellow (Yellow) Urine Clarity Clear (Clear) Urine pH 7.0 (5.0-9.0) Urine Specific [place] 1.011 (1.001-1.035) Urine Protein Negative (Negative) Urine Ketones Negative (Negative) Urine Blood Negative /uL (Negative) Urine Nitrite Negative (Negative) Urine Bilirubin Negative (Negative) Urine Urobilinogen Normal mg/dL (Negative) Urine Leukocyte Esterase Negative /uL (Negative) Urine RBC 1 /hpf (0 - 4) Urine Microscopic WBC 2 /HPF (0-5) Urine Squamous Epithelial Cells Few /hpf (<5) Urine Bacteria None seen /hpf (None Seen) Urine Glucose Normal mg/dL (Normal) Urine Opiates Screen Neg (NEGATIVE) Urine Fentanyl Screen Neg (NEGATIVE) Urine Barbiturates Screen Neg (NEGATIVE) Urine Phencyclidine Screen Neg (NEGATIVE) Urine Amphetamines Screen Neg (NEGATIVE) Urine Benzodiazepines Screen Neg (NEGATIVE) Urine Cocaine Screen Neg (NEGATIVE) Urine Cannabinoids Screen Neg (NEGATIVE) White Blood Count 8.4 10^3/uL (4.4-10.8) Red Blood Count 3.83 10^6/uL (4.0-5.20) Hemoglobin 11.4 g/dL (12.2-16.2) Hematocrit 34.2 % (36.0-46.0) Mean Corpuscular Volume 89.2 fL (80.0-100.0) Mean Corpuscular Hemoglobin 29.9 pg (28.0-32.0) Mean Corpuscular Hemoglobin Concent 33.5 g/dL (32.0-36.0) Red Cell Distribution Width 14.8 % (11.8-14.3) Platelet Count 179 10^3/uL (140-450) Mean Platelet Volume 9.3 fL (6.9-10.8) Neutrophils (%) (Auto) 81.5 % (37.0-80.0) Lymphocytes (%) (Auto) 14.6 % (10.0-50.0) Monocytes (%) (Auto) 3.0 % (0.0-12.0) Eosinophils (%) (Auto) 0.6 % (0.0-7.0) Basophils (%) (Auto) 0.3 % (0.0-2.0) Neutrophils # (Auto) 6.8 10 ^3/uL (1.6-8.6) Lymphocytes # (Auto) 1.2 10 ^3/uL (0.4-5.4) Monocytes # (Auto) 0.3 10 ^3/uL (0-1.3) Eosinophils # (Auto) 0 10 ^3/uL (0-0.8) Basophils # (Auto) 0 10 ^3/uL (0-0.2) Nucleated Red Blood Cells 0.0 % Prothrombin Time 9.8 sec (9.3-11.8) Prothrombin Time INR 0.92 (0.9-1.15) Activated Partial Thromboplast Time 29.3 SEC (24.5-34.5) Sodium Level 140 mmol/L (136-145) Potassium Level 3.7 mmol/L (3.5-5.1) Chloride Level 107 mmol/L (98-107) Carbon Dioxide Level 23 mmol/L (20-31) Anion Gap 10 (5-15) Blood Urea Nitrogen 7 mg/dL (9-23) Creatinine 0.63 mg/dL (0.550-1.02) Glomerular Filtration Rate Calc 120 mL/min (>90) BUN/Creatinine Ratio 11.1 (10.0-20.0) Serum Glucose 108 mg/dL (74-106) Calcium Level 9.2 mg/dL (8.7-10.4) Total Bilirubin 0.3 mg/dL (0.2-1.0) Aspartate Amino Transferase (AST) 24 U/L (13-40) Alanine Aminotransferase (ALT) < 9 U/L (7-40) Alkaline Phosphatase 101 U/L (46-116) Total Protein 6.7 g/dL (5.7-8.2) Albumin 3.8 g/dL (3.2-4.8) Treponema pallidum Antibody Non-reactive (Negative) Other Laboratory Tests 05/24/25 09:34 Brief Hx & Hospital Course: Ms Freddie Ritter was admitted on05/24/25 at 40w 3d EGA for IOL d/t postdate. Induction process started with cervical ripening medication, followed by oxytocin augmentation.Patient then had an uneventful labor, got labor epidural for pain relief. She progressed to 2nd stage of labor and had a on 05/25/25, had a first degree perineal. laceration. Same repaired.(See Delivery Note for details) Normal course; meeting milestones w/o any problem or complications. Operations or Procedures <> IOL <> <> Repair of Laceration Condition at Discharge: Stable Final Diagnosis/Problems List Post Term - Delivered Discharge Disposition: Home Discharge Instruct/Medications Diet: Regular Diet comment: Routine regular diet rich in fiber, protein, iron and vitamin C with adequate fluid intake. Activity: No Restrictions, As Tolerated Activity comment: Unrestricted. Advance as tolerated. Balance activities with rest periods No heavy lifting, pushing or straining. Pelvic rest x 6weeks Follow Up/Referral: F/u with OB provider in 1-2 weeks Medications: Ibuprofen 600mg every 6 hours as needed for pain. Continue Vitamin and iron Scheduled Ferrous Sulfate (Ferrous Sulfate), 1 TAB PO TID, (Reported) Naproxen (Naprosyn Tablet), 1 TAB PO BID Vit W/ Ferrous Fumara ( One Daily), 1 TAB PO DAILY, (Reported) Scheduled PRN Docusate Sodium (Docusate Sodium), 200 MG PO HS PRN Hydrocodone-Acetaminophen (Hydrocodone Bitartrate/AC 5-325 mg), 1 TAB PO Q6HPRN PRN Ibuprofen Micronized (Motrin Tablet), 600 MG PO Q6HP PRN Discharge Statement: "Patient was advised to return to the ER or call 911 if any headaches, dizziness, shortness of breath, chest pain, abdominal pain, bleeding, fevers, or worsening of medical condition. Patient was counseled about treatment plan, medications, possible side effects, patientverbalized understanding. All questions were answered to the best of my ability. This discharge took greater then 30 minutes in planning, reviewing documentation, counseling the patient, and discussing with other team members." ASSESSMENT ASSESSMENT Hospital Course Ms Freddie Ritter was admitted on05/24/25 at 40w 3d EGA for IOL d/t postdate. Induction process started with cervical ripening medication, followed by oxytocin augmentation.Patient then had an uneventful labor, got labor epidural for pain relief. She progressed to 2nd stage of labor and had a , had a first degree perineal. laceration. Same repaired.(See Delivery Note for details) Normal course; meeting milestones w/o any problem or complications. Assessment Post term - Delivered Day #1 Problems: (1) First degree perineal laceration during delivery Visit Coding OBGYN Date of Service: May 26, 2025 Billing Provider: PAZ BLANK CNM MILIEU TECHNICIAN Common Visit Codes: 34886-SYS/OBS DISCH DAY <30MIN PAZ BLANK CNM May 26, 2025 06:30
[2025-05-26 07:00] VITALS: BP 108/53; PULSE 66; RESP 18; TEMP 97.5; O2SAT 97
[2025-05-26 07:38] LABS: Hematocrit 26.5 % (36.0-46.0); Hemoglobin 9.0 g/dL (12.2-16.2); Mean Corpuscular Hemoglobin 30.9 pg (28.0-32.0); Mean Corpuscular Volume 91.0 fL (80.0-100.0); Nucleated Red Blood Cells % 0.0 %
== END 2025-05-26 12:07 | disposition home or self-care (01) | DRG 560 ==
LOC: LDRP 09:11
PROVIDERS: ADMIT Obstetrics & Gynecology; ATTEND Obstetrics & Gynecology
PROC: 10E0XZZ Delivery of Products of Conception, External Approach (ICD-10-PCS; principal; 2025-05-25)
PROC: 3E0DXGC Introduction of Other Therapeutic Substance into Mouth and Pharynx, External Approach (ICD-10-PCS; 2025-05-25)
PROC: 0HQ9XZZ Repair Perineum Skin, External Approach (ICD-10-PCS; 2025-05-25)
PROC: 3E0R3BZ Introduction of Anesthetic Agent into Spinal Canal, Percutaneous Approach (ICD-10-PCS; 2025-05-25)
PROC: 00HU33Z Insertion of Infusion Device into Spinal Canal, Percutaneous Approach (ICD-10-PCS; 2025-05-25)
DX: O48.0 Post-term pregnancy (principal); Z37.0 Single live birth; R71.0 Precipitous drop in hematocrit; O69.81X0 Labor and delivery complicated by cord around neck, without compression, not applicable or unspecified; Z3A.40 40 weeks gestation of pregnancy; Z88.0 Allergy status to penicillin; O70.0 First degree perineal laceration during delivery
CPT/HCPCS: 36415; 59025; 59409; 80053; 80307; 81001; 81002; 85025; 85610; 85730; 86780; 86850; 86900; 86901; 94760; 94762; 96360; 96361; 96365; 96366; G0378; J2590